=== PATIENT | female | born 1980 | race Caucasian/White ===

== ENCOUNTER 2017-01-03 20:22 | Inpatient (IN) | payer OTHER ==
[~2017-01-03] VITALS: Ht 170.2 cm; Wt 93.0 kg
[~2017-01-03 20:22] MED LIST: IBUP-1222 PO; PREN1TAB52 PO
[2017-01-03 20:26] VITALS: BP 124/78
[2017-01-03] MEDS ORDERED: D5%-LACTATED RINGERS 1,000 ML IV SCH (21:07)
[2017-01-03] MEDS ORDERED: LACTATED RINGERS 1,000 ML IV SCH (21:07)
[2017-01-03] MEDS ORDERED: OXYTOCIN 30U/ 0.9% NaCL 500ML 500 ML IV ONE (21:07)
[2017-01-03] MEDS ORDERED: MISOPROSTOL 200 MCG TABLET ONE (21:13)
[2017-01-03] MEDS ORDERED: NEWBORN KIT ONE (21:13)
[2017-01-03] MEDS ORDERED: LIDOCAINE 1%, 20ML ONE (21:13)
[2017-01-03] MEDS ORDERED: OXYTOCIN 30U/ 0.9% NaCL 500ML 500 ML ONE (21:14)
[2017-01-03] MEDS ORDERED: FENTANYL PF 100 MCG/2ML ONE (21:19)
[2017-01-03] MEDS ORDERED: FENTANYL PF 100 MCG/2ML IV PRN (21:30)
[2017-01-03] MEDS ORDERED: SODIUM CITRATE/CITRIC ACID 30 ML UDC PO PRN (21:30)
[2017-01-03] MEDS ORDERED: METOCLOPRAMIDE 5 MG/ML, 2ML IVPush PRN (21:30)
[2017-01-03] MEDS ORDERED: CALCIUM CARBONATE 500 MG TAB.CHEW PO PRN ×2 (21:30→22:00)
[2017-01-03] MEDS ORDERED: FENTANYL PF 100 MCG/2ML IVPush PRN (21:30)
[2017-01-03] MEDS ORDERED: ONDANSETRON 2MG/ML, 2ML IVPush PRN (21:30)
[2017-01-03] MEDS ORDERED: OXYTOCIN 30U/ 0.9% NaCL 500ML 500 ML IV SCH (21:51)
[2017-01-03] MEDS ORDERED: ONDANSETRON 2MG/ML, 2ML IV PRN (22:00)
[2017-01-03] MEDS ORDERED: MISOPROSTOL 200 MCG TABLET PR PRN (22:00)
[2017-01-03] MEDS ORDERED: CARBOPROST TROMETHAMINE 250 MCG/ML, 1ML IM PRN (22:00)
[2017-01-03] MEDS ORDERED: METHYLERGONOVINE 0.2 MG/ML IM PRN (22:00)
[2017-01-03] MEDS ORDERED: DIPH,PERTUSS(ACELL),TET VAC/PF NC IM-VACC PRN (22:00)
[2017-01-03] MEDS ORDERED: GLYCERIN ADULT SUPP PR PRN (22:00)
[2017-01-03] MEDS ORDERED: ACETAMINOPHEN 325 MG TABLET PO PRN ×3 (22:00)
[2017-01-03] MEDS ORDERED: BISACODYL 10 MG SUPP PR PRN (22:00)
[2017-01-03] MEDS ORDERED: OXYcodone/APAP 5/325MG TABLET PO PRN ×2 (22:00)
[2017-01-03] MEDS ORDERED: MAGNESIUM HYDROXIDE 8%, 30ML UDC PO PRN (22:00)
[2017-01-03 22:30] LABS: HEMATOCRIT 37.9 % (34.6-47.8); HEMOGLOBIN 12.9 g/dL (11.7-16.4); WHITE BLOOD COUNT 12.6 x10^3/uL (3.4-10)
[2017-01-03] MEDS ORDERED: IBUPROFEN 600 MG TABLET ONE (22:57)
[2017-01-03] MEDS: IBUPROFEN 600 MG TABLET PO PRN (22:59)
[2017-01-03 23:45] VITALS: BP 118/71
[2017-01-04 04:00] VITALS: BP 120/75
[2017-01-04 06:10] LABS: HEMATOCRIT 35.3 % (34.6-47.8); WHITE BLOOD COUNT 9.8 x10^3/uL (3.4-10)
[2017-01-04 08:00] VITALS: BP 112/78
[2017-01-04] MEDS: IBUPROFEN 600 MG TABLET PO PRN (09:04)
[2017-01-04] MEDS: PRENATAL VIT/IRON/FA 1 EACH TABLET PO SCH (09:05)
[2017-01-04] MEDS: DOCUSATE 100 MG CAPSULE PO PRN ×2 (09:05→20:34)
[2017-01-04 12:00] VITALS: BP 112/78
[2017-01-04 16:00] VITALS: BP 116/80
[2017-01-04 20:30] VITALS: BP 117/71
[2017-01-05 08:10] VITALS: BP 123/76
[2017-01-05] MEDS: PRENATAL VIT/IRON/FA 1 EACH TABLET PO SCH (08:50)
[2017-01-05] MEDS ORDERED: IBUP-1222 PO (12:17)
[2017-01-05] MEDS ORDERED: OXYC-302 PO (12:18)
== END 2017-01-05 13:05 | disposition home or self-care (01) | DRG 775 ==
LOC: LDOP 20:22 → LDIP 21:10 → 2NW 23:30
PROVIDERS: ADMIT Obstetrics & Gynecology; ATTEND Obstetrics & Gynecology
PROC: 10E0XZZ Delivery of Products of Conception, External Approach (ICD-10-PCS; principal; 2017-01-03)
PROC: 0KQM0ZZ Repair Perineum Muscle, Open Approach (ICD-10-PCS; 2017-01-03)
PROC: 00HU33Z Insertion of Infusion Device into Spinal Canal, Percutaneous Approach (ICD-10-PCS; 2017-01-03)
DX: O69.81X0 Labor and delivery complicated by cord around neck, without compression, not applicable or unspecified (principal); F53 Mental and behavioral disorders associated with the puerperium, not elsewhere classified; O70.1 Second degree perineal laceration during delivery; Z37.0 Single live birth; Z3A.39 39 weeks gestation of pregnancy
CPT/HCPCS: 36415; 85025; 86850; 86900; J2590; J7120

== ENCOUNTER → 2018-01-13 | Outpatient (CLI) | payer OTHER ==
[~2018-01-13] MED LIST changes: +None per pt; +OXYC-302 PO
[2018-01-13 10:54] LABS: BASOPHILS # (AUTO) 0.05 x10^3/uL (0-0.1); BASOPHILS % (AUTO) 1 % (0-1); EOSINOPHILS # (AUTO) 0.13 x10^3/uL (0-0.4); EOSINOPHILS % (AUTO) 2 % (1-7); LYMPHOCYTES # (AUTO) 1.81 x10^3/uL (1-3.4); LYMPHOCYTES % (AUTO) 23 % (22-44); MD NO; MEAN CORPUSCULAR HEMOGLOBIN 31.3 pg (27.0-34.8); MEAN CORPUSCULAR HGB CONC 33.6 g/dL (32.4-35.8); MEAN CORPUSCULAR VOLUME 93.2 fL (80-100); MEAN PLATELET VOLUME 7.4 fL (7.4-10.4); MONOCYTES # (AUTO) 0.37 x10^3/uL (0.2-0.8); MONOCYTES % (AUTO) 5 % (2-9); NEUTROPHILS % (AUTO) 71 % (42-75); PLATELET COUNT 370 x10^3/uL (130-400); RED BLOOD COUNT 4.75 x10^6/uL (3.82-5.3); RED CELL DISTRIBUTION WIDTH 13.2 % (9.6-15.2)
== END | disposition home or self-care (01) ==
LOC: STAR 10:03 → MERGE 11:30
PROVIDERS: ATTEND Obstetrics & Gynecology
DX: Z30.2 Encounter for sterilization (principal)
CPT/HCPCS: 36415; 84702; 85025

== ENCOUNTER 2018-01-22 05:54 | Day surgery (SDC) | payer OTHER ==
[~2018-01-22] VITALS: Ht 170.2 cm; Wt 77.2 kg
[2018-01-22] MEDS ORDERED: LACTATED RINGERS 1,000 ML IV SCH (06:11)
[2018-01-22 06:12] VITALS: BP 117/77
[2018-01-22] MEDS ORDERED: ACETAMINOPHEN 500 MG TABLET PO ONE (06:30)
[2018-01-22 06:41] LABS: HCG UR SG 1.033 (1.003-1.030)
[2018-01-22] MEDS ORDERED: BUPIVACAINE/PF-EPI 0.5% 1:200K ONE (06:54)
[2018-01-22] MEDS ORDERED: FENTANYL PF 100 MCG/2ML ONE ×3 (07:08→08:25)
[2018-01-22] MEDS ORDERED: MIDAZOLAM 1 MG/ML, 2ML ONE (07:08)
[2018-01-22] MEDS ORDERED: PROPOFOL 10 MG/ML, 20ML ONE ×2 (07:09)
[2018-01-22] MEDS ORDERED: ONDANSETRON 2MG/ML, 2ML IV PRN (07:30)
[2018-01-22] MEDS ORDERED: MEPERIDINE/PF 25MG/0.5ML IVPush PRN (07:30)
[2018-01-22] MEDS ORDERED: PROMETHAZINE 25 MG/ML, 1ML IV PRN (07:30)
[2018-01-22] MEDS ORDERED: MORPHINE SULFATE 4 MG/ML, 1ML IVPush PRN (07:30)
[2018-01-22] MEDS ORDERED: OXYcodone 5 MG/5 ML ORAL.SOL UDC PO PRN (07:30)
[2018-01-22] MEDS ORDERED: ROCURONIUM 10MG/ML,5ML ONE (07:44)
[2018-01-22] MEDS ORDERED: DEXAMETHASONE 4 MG/ML, 1ML ONE (07:44)
[2018-01-22] MEDS ORDERED: ONDANSETRON 2MG/ML, 2ML ONE (07:44)
[2018-01-22] MEDS ORDERED: LORazepam 2 MG/ML, 1ML ONE (08:14)
[2018-01-22] MEDS: LORazepam 2 MG/ML, 1ML IVPush PRN ×2 (08:17→08:35)
[2018-01-22] MEDS ORDERED: OXYcodone 5 MG/5 ML ORAL.SOL UDC ONE (08:25)
[2018-01-22] MEDS: FENTANYL PF 100 MCG/2ML IV PRN ×2 (08:28→08:43)
== END 2018-01-22 11:00 | disposition home or self-care (01) ==
LOC: OUT 05:54 → MERGE 07:30 → OUT 11:00
PROVIDERS: ATTEND Obstetrics & Gynecology
DX: Z30.2 Encounter for sterilization (principal); I10 Essential (primary) hypertension
CPT/HCPCS: 58670; 81025; 88302; J1100; J2060; J2250; J2405; J2704; J3010; J7120

== ENCOUNTER → 2019-12-10 | Outpatient (CLI) | payer OTHER | END | disposition home or self-care (01) | LOC: RAD 05:21 | DX: R51 Headache (principal) | CPT/HCPCS: 70450 ==